=== PATIENT | female | born 1990 | race African-American/Black ===

== ENCOUNTER 2018-06-23 13:19 | Emergency (ER) | payer OTHER, SELFPAY ==
[2018-06-23 13:26] VITALS: BP 136/71; PULSE 68; RESP 18; TEMP 36.4; O2SAT 99
[2018-06-23] MEDS: IBUPROFEN SUSP 100 MG/5 ML UDC 400 MG PO (13:34)
--- NOTE | 2018-06-23 14:35 | PC.NURSE ---
pt recently had a tonsilectomy on June 17, had 24 oxycodone that I took which just took the edge off but those are gone and now she is here related to the pain, hurts to swallow and she feels like she is dehydrated.
[2018-06-23] MEDS: KETOROLAC 60 MG/2 ML VIAL 15 MG IV (15:30)
[2018-06-23] MEDS: SODIUM CHLORIDE 0.9% 1,000 ML 1000 ML IV (15:30)
[2018-06-23 15:35] LABS: Add Manual Diff / Slide Review NO; Basophils Absolute Auto 0 /uL (0-100); Basophils Percent Auto 0.5 % (0-2); Eosinophils Absolute Auto 200 /uL (0-450); Eosinophils Percent Auto 3.5 % (2-4); Hematocrit 39.5 % (36-46); Lymphocytes Absolute Auto 1500 /uL (1100-4500); Lymphocytes Percent Auto 24.1 % (25-40); Mean Corpuscular HGB Conc 32.8 % (30-36); Mean Corpuscular Volume 82.4 fL (80-100); Monocytes Absolute Auto 800 /uL (0-900); Monocytes Percent Auto 12.9 % (3-14); Neutrophils Absolute Auto 3800 /uL (1500-7000); Platelet Count 287 X10^3/uL (150-400); Red Cell Distribution Width 14.5 % (11.6-14.8); White Blood Cell Count 6.4 X10^3/uL (4.5-11.0)
[2018-06-23 15:48] LABS: BUN Creatinine Ratio 17.1 (6-22); Blood Urea Nitrogen 12 mg/dL (7-17); Calcium 8.3 mg/dL (8.4-10.2); Carbon Dioxide 26 mmol/L (22-32); Chloride 103 mmol/L (98-107); Estimated Glomerular Filt Rate > 60.0 mL/min (>60); Glucose 79 mg/dL (70-100); HEMOLYSIS < 15 (0-50); Potassium 3.8 mmol/L (3.4-5.1); Sodium 138 mmol/L (137-145)
[2018-06-23 16:16] VITALS: BP 115/66; PULSE 60; RESP 18; O2SAT 97
--- NOTE | 2018-06-24 07:18 | ED_ITS ---
HPI - Dental/Oral General Chief complaint: Dental/Oral Stated complaint: TONSILECTORY LAST WEEK PAIN Time Seen by Provider: 06/23/18 13:42 Source: patient Mode of arrival: ambulatory Limitations: no limitations History of Present Illness HPI Narrative: 28-year-old female nonsmoker, otherwise healthy presents with a chief complaint of severe throat pain. She had a tonsillectomy with our local ENT group on Saturday and ran out of her oxycodone. She contacted their office but nobody was available. She has pain with swallowing but no significant discharge, cough or shortness of breath. She is able to swallow although with significant pain Duration: constant Severity: moderate Relieving factors: prescription analgesics Exacerbating factors: chewing Associated symptoms: pain with swallowing Treatment prior to arrival: none Related Data Home Medications Medication Instructions Recorded Confirmed acetaminophen [Tylenol Extra 1,000 mg PO Q6H PRN 06/23/18 06/23/18 Strength] sertraline 50 mg PO BEDTIME 06/23/18 06/23/18 Previous Rx's Medication Instructions Recorded oxycodone 5 mg PO Q4-6H PRN #15 tab 06/23/18 Allergies Allergy/AdvReac Type Severity Reaction Status Date / Time No Known Drug Allergies Allergy Verified 06/23/18 13:29 Review of Systems Constitutional Denies chills, Denies fever(s), Denies lethargy and Denies weakness Eyes Denies change in vision, Denies eye discharge, Denies irritation and Denies loss of vision ENT Ears, Nose, Mouth, and Throat: Denies change in voice, Denies neck pain and Reports sore throat Cardiovascular Denies chest pain, Denies irregular heart rhythm, Denies lightheadedness, Denies palpitations, Denies dyspnea, Denies dyspnea on exertion and Denies orthopnea Respiratory Denies cough, Denies dyspnea, Denies dyspnea on exertion and Denies wheezing Gastrointestinal Gastrointestinal: Denies abdominal pain, Denies change in bowel habits, Denies diarrhea, Denies nausea and Denies vomiting Genitourinary Denies hematuria, Denies flank pain, Denies urinary incontinence and Denies urinary urgency Musculoskeletal Denies neck pain Integumentary/Breasts Denies pruritus, Denies erythema, Denies rash and Denies wounds Neurologic Denies confusion, Denies loss of vision and Denies weakness Psychiatric Denies anxiety, Denies confusion, Denies depression, Denies homicidal ideation and Denies suicidal ideation Endocrine Denies palpitations Hematologic/Lymphatic Denies easy bruising Allergic/Immunologic Denies wheezing PFSH Medical History Depression (Acute) Surgical History Hx of tonsillectomy (Acute) Social History Smoking Status: Never smoker Social History Smoking Status: Never smoker Exam Narrative Exam Narrative: GENERAL: 28-year-old female obviously uncomfortable HEAD: Atraumatic. Normocephalic. No temporal or scalp tenderness. EYES: Pupils equal round and reactive. Extraocular motions intact. No scleral icterus. No injection or drainage. ENT: dry mucous membranes.Nose without bleeding, purulent drainage or septal hematoma. Throat With mild erythema, no bleeding or significant swelling. Expected eschar on tonsillar bed bilaterally NECK: Trachea midline. No JVD or lymphadenopathy. Supple, nontender, no meningeal signs. CARDIOVASCULAR: Regular rate and rhythm without murmurs, gallops, or rubs. RESPIRATORY: Clear to auscultation. Breath sounds equal bilaterally. No wheezes, rales, or rhonchi. GASTROINTESTINAL: Abdomen soft, non-tender, nondistended. No hepato- splenomegaly, or palpable masses. No guarding. EXTREMITIES: No clubbing, cyanosis, or edema. No joint tenderness, effusion, or edema noted. BACK: Nontender without deformity or crepitance. No flank tenderness. NEURO: AOx3. SKIN: No rash or erythema. Initial Vital Signs Initial Vital Signs: Vital Signs Temperature 97.6 F 06/23/18 13:26 Pulse Rate 68 06/23/18 13:26 Respiratory Rate 18 06/23/18 13:26 Blood Pressure 136/71 06/23/18 13:26 Pulse Oximetry 99 06/23/18 13:26 Course Orders Ordered: Discontinued Medications Sodium Chloride (Normal Saline 0.9%) 1,000 mls @ 1,000 mls/hr IV BOLUS ONE Stop: 06/23/18 16:01 Last Infusion: 06/23/18 16:24 Dose: 0 mls/hr Admin: 06/23/18 15:30 Dose: 1,000 mls/hr Ibuprofen (Motrin Susp) 400 mg PO NOW ONE Stop: 06/23/18 13:34 Last Admin: 06/23/18 13:34 Dose: 400 mg Ketorolac Tromethamine (Toradol) 15 mg IV NOW ONE Stop: 06/23/18 15:12 Last Admin: 06/23/18 15:30 Dose: 15 mg Reevaluation(s) Reevaluation #1: patient feels much better after above-stated therapies Consultations Consultation #1: discussion with on-call otolaryngology whom requests we refill oxycodone 15 tablets. he suggests Toradol is an appropriate choice here in the emergency department and is on board with my decision to administer MDM - Dental/Oral Lab Data Result diagrams: 06/23/18 15:20 06/23/18 15:20 Lab Results 06/23/18 06/23/18 Range/Units 15:20 15:20 WBC 6.4 (4.5-11.0) X10^3/uL RBC 4.80 (4.0-5.2) X10^6/uL Hgb 13.0 (12.0-16.0) g/dL Hct 39.5 (36-46) % MCV 82.4 (80-100) fL MCH 27.0 (26-34) PG MCHC 32.8 (30-36) % RDW 14.5 (11.6-14.8) % Plt Count 287 (150-400) X10^3/uL Neut % (Auto) 59.0 (50-75) % Lymph % (Auto) 24.1 L (25-40) % Cannon % (Auto) 12.9 (3-14) % Eos % (Auto) 3.5 (2-4) % Baso % (Auto) 0.5 (0-2) % Neut # (Auto) 3800 (0110-2070) /uL Lymph # (Auto) 1500 (1823-2154) /uL Cannon # (Auto) 800 (0-900) /uL Eos # (Auto) 200 (0-450) /uL Baso # (Auto) 0 (0-100) /uL Sodium 138 (137-145) mmol/L Potassium 3.8 (3.4-5.1) mmol/L Chloride 103 (98-107) mmol/L Carbon Dioxide 26 (22-32) mmol/L BUN 12 (7-17) mg/dL Creatinine 0.70 (0.52-1.04) mg/dL Estimated GFR > 60.0 (>60) mL/min BUN/Creatinine Ratio 17.1 (6-22) Glucose 79 (70-100) mg/dL Calcium 8.3 L (8.4-10.2) mg/dL Discharge Plan Departure Patient Disposition: Home Clinical Impression: Pain in throat Discharge Date/Time: 06/23/18 16:17 Interventions: ED Discharge Assessment Last Done: 06/23/18 16:16 Instructions: DI for Tonsillectomy-Adult Activity Restrictions/Additional Instructions: *You have been diagnosed with [ post operative throat pain ] *What to do: *Take medications as directed *Follow up with your primary care provider in 2-3 days, call for an appointment. Let them know you were seen in the Emergency Department and that we ask that you be seen in follow up *Return to ER if you should have any new, worsening or concerning symptoms Prescriptions: New oxycodone 5 mg tablet 5 mg PO Q4-6H PRN (Reason: pain) Qty: 15 RF: 0 No Action acetaminophen [Tylenol Extra Strength] 500 mg Tablet 1,000 mg PO Q6H PRN (Reason: Pain (Scale Score 4-6)) RF: 0 sertraline 50 mg tablet 50 mg PO BEDTIME RF: 0
== END 2018-06-23 16:17 | disposition home or self-care (01) ==
PROVIDERS: Emergency Provider Emergency Medicine
DX: R07.0 Pain in throat (principal)
CPT/HCPCS: 36591; 80048; 85025; 96361; 96374; 99283; 99284; J1885

== ENCOUNTER 2019-04-21 12:33 | Emergency (ER) | payer OTHER, SELFPAY ==
[2019-04-21 12:43] VITALS: BP 138/50; PULSE 78; RESP 14; TEMP 36.6; O2SAT 98; BMI 30.7
--- NOTE | 2019-04-21 12:55 | ED_ITS ---
HPI - Recheck/Abnormal Lab/Rx <LATRELL Ng - Last Filed: 04/21/19 20:18> General Chief Complaint: Recheck/Abnormal Lab/Rx Stated Complaint: NEEDS Time Seen by Provider: 04/21/19 12:35 Source: patient Mode of arrival: Ambulatory Limitations: no limitations History of Present Illness HPI narrative: 29-year-old female presents to the emergency department for a test. She states her last menstrual period was 03/11/2019. Patient states she usually has 31 day cycles and she is very regular but is about a week late at this point. Patient reports increased breast tenderness, irritability, and bloating. 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 She denies any abdominal pain, vaginal bleeding, dizziness, chest pain, shortness of breath, other concerns. Related Data Home Medications Medication Instructions Recorded Confirmed acetaminophen [Tylenol Extra 1,000 mg PO Q6H PRN 06/23/18 06/23/18 Strength] sertraline 50 mg PO BEDTIME 06/23/18 06/23/18 Allergies Allergy/AdvReac Type Severity Reaction Status Date / Time No Known Drug Allergies Allergy Verified 04/21/19 12:43 Review of Systems <LATRELL Ng - Last Filed: 04/21/19 20:18> Review of Systems Narrative: REVIEW OF SYSTEMS: GENERAL: Denies fever or chills. HENT: No head trauma, hearing loss or sore throat. EYES: No loss of vision, double vision, eye pain, or irritation. CARDIOVASCULAR: No chest pain or syncope. RESPIRATORY: No shortness of breath or cough. GASTROINTESTINAL: No vomiting, diarrhea, or constipation. GENITOURINARY: No flank pain or dysuria. MUSCULOSKELETAL: No pain, weakness, or deformities. INTEGUMENTARY: No rash, lesions, or pruritus. NEURO: No numbness, tingling, memory loss, or confusion. PSYCH: No behavior or mood changes. Patient History <LATRELL Ng - Last Filed: 04/21/19 20:18> Medical History Depression (Acute) Surgical History Hx of tonsillectomy (Acute) Social History Smoking Status: Never smoker Smoking Status: Never smoker alcohol intake frequency: holidays/special occasions only Substance Use Type: does not use Exam <LATRELL Ng - Last Filed: 04/21/19 20:18> Initial Vital Signs Initial Vital Signs: Vital Signs Temperature 97.9 F 04/21/19 12:43 Pulse Rate 78 04/21/19 12:43 Respiratory Rate 14 04/21/19 12:43 Blood Pressure 138/50 L 04/21/19 12:43 Pulse Oximetry 98 04/21/19 12:43 PHYSICAL EXAMINATION: GENERAL: Well groomed, alert, and cooperative. Answers questions promptly and appropriately. Vital signs noted. HENT: Normocephalic, atraumatic. Ear canals patent. Oral mucosa is pink and moist. EYES: Conjunctiva pink, sclera white, no periorbital swelling. CHEST: Normal to inspection and without deformities. CARDIOVASCULAR: Regular rate. RESPIRATORY: Normal respiratory rate, trachea midline, airway patent. No stridor, nasal flaring or accessory muscle use. GASTROINTESTINAL: Bowel sounds normoactive. Abdomen is soft and non-tender. No organomegaly. MUSCULOSKELETAL: Normal gait and coordination. Equal tone and mass bilaterally. EXTREMITIES: CMS intact. Moves all extremities. SKIN: Warm, dry, soft, appropriate color for ethnicity. No lesions, rashes, or wounds. NEURO: Alert and Oriented X 3. Good coordination. No ataxia, or sensory deficits, or cognitive issues. PSYCH: Appropriate affect and mood. <Linda Tolliver DO - Last Filed: 04/24/19 07:33> Initial Vital Signs Initial Vital Signs: Vital Signs Temperature 97.9 F 04/21/19 12:43 Pulse Rate 78 04/21/19 12:43 Respiratory Rate 14 04/21/19 12:43 Blood Pressure 138/50 L 04/21/19 12:43 Pulse Oximetry 98 04/21/19 12:43 Course <LATRELL Ng - Last Filed: 04/21/19 20:18> Orders Ordered: ED Orders 04/21/19 13:07 Test Serum,Qual Stat Vital Signs Vital signs: Vital Signs - 8 hr 04/21/19 12:43 Temperature 97.9 F Pulse Rate 78 Respiratory Rate 14 Blood Pressure 138/50 L Pulse Oximetry 98 <Linda Tolliver DO - Last Filed: 04/24/19 07:33> Orders Ordered: ED Orders 04/21/19 13:07 Test Serum,Qual Stat Vital Signs Vital signs: Vital Signs - 8 hr 04/21/19 12:43 Temperature 97.9 F Pulse Rate 78 Respiratory Rate 14 Blood Pressure 138/50 L Pulse Oximetry 98 MDM - Recheck/Abnormal Lab/Rx <Thelma LATRELL Wang - Last Filed: 04/21/19 20:18> Medical Records Attestation: I reviewed the patient's medical records. Lab Data Attestation: I reviewed the patient's lab results. Labs: Lab Results 04/21/19 Range/Units 13:07 Serum , Qual Negative (Negative) [facility] Narrative Medical decision making narrative: 29-year-old healthy female presents to the emergency department for delayed menstruation cycle and possible . Patient has no symptoms and is hemodynamically stable. Negative urine and HCG tests. Patient was counseled about prevention. She was encouraged to follow up with her primary care provider in 1-2 weeks if she is still experiencing amenorrhea. Patient agreed with plan of care verbalized unders tanding <Linda Tolliver DO - Last Filed: 04/24/19 07:33> Lab Data Labs: Lab Results 04/21/19 Range/Units 13:07 Serum , Qual Negative (Negative) Discharge Plan Departure Patient Disposition: Home Clinical Impression: Encounter for test, result negative Discharge Date/Time: 04/21/19 14:10 Instructions: In-Home Tests: Your Questions Answered, Home and Clinic Tests Activity Restrictions/Additional Instructions: Thank you for entrusting me with your care today. As discussed, your urine and blood tests are negative for . Please follow up with your primary care provider the next few weeks for further evaluation if you continue to have symptoms or concerns about a missed menstrual cycle. Return emergency depar tment for severe symptoms such as severe abdominal pain, uncontrollable vomiting, high fevers, dizziness, syncope, seizures, or other concerns. Prescriptions: No Action acetaminophen [Tylenol Extra Strength] 500 mg Tablet 1,000 mg PO Q6H PRN (Reason: Pain (Scale Score 4-6)) RF: 0 sertraline 50 mg tablet 50 mg PO BEDTIME RF: 0
[2019-04-21 13:44] LABS: Pregnancy Test Serum,Qual Negative (Negative)
== END 2019-04-21 14:10 | disposition home or self-care (01) ==
PROVIDERS: Emergency Provider Nurse Practitioner
DX: Z32.02 Encounter for pregnancy test, result negative (principal)
CPT/HCPCS: 36415; 84703; 99283

== ENCOUNTER 2020-04-06 01:35 | Emergency (ER) | payer OTHER, SELFPAY ==
[2020-04-06 01:44] VITALS: BP 142/80; PULSE 88; RESP 15; TEMP 37.2; O2SAT 100; BMI 29.9
--- NOTE | 2020-04-06 01:44 | ED_ITS ---
HPI - General Adult General Chief complaint: Extremity Problem,Nontraumatic Stated complaint: leg pain x 3 days numbness Time Seen by Provider: 04/06/20 01:42 Source: patient Mode of arrival: Ambulatory Limitations: no limitations History of Present Illness HPI narrative: Patient is a 30-year-old otherwise healthy female here for evaluation of pain in her left calf and also tingling in her left leg. Patient states the symptoms been going on for the past couple days. Approximately 7-10 days ago she was diagnosed with COVID-19. She states that her symptoms were ?fairly mild ?however she is still having somewhat of a slight cough. She called the nurse advice line who told her to come to the emergency department to get evaluated for blood clot. Related Data Home Medications Medication Instructions Recorded Confirmed acetaminophen [Tylenol Extra 1,000 mg PO Q6H PRN 06/23/18 06/23/18 Strength] sertraline 50 mg PO BEDTIME 06/23/18 06/23/18 Allergies Allergy/AdvReac Type Severity Reaction Status Date / Time No Known Drug Allergies Allergy Verified 04/21/19 12:43 Review of Systems Constitutional Constitutional: Denies fever(s) and Denies headache(s) ENT Ears, Nose, Mouth, and Throat: Denies headache(s) Cardiovascular Cardiovascular: Denies chest pain Respiratory Respiratory: Reports cough Musculoskeletal Comments: Left calf pain Integumentary/Breasts Skin/Breast: Denies lesions and Denies rash Neurologic Neurologic: Denies headache(s) Comments: Tingling left lower extremity Hematologic/Lymphatic Hematologic/Lymphatic: Denies easy bruising Allergic/Immunologic Allergic/Immunologic: Denies urticaria Patient History Medical History (Updated 04/06/20 @ 03:44 by Gilberto Funes DO) Depression Surgical History Hx of tonsillectomy Social History Smoking Status: Never smoker Smoking Status: Never smoker alcohol intake frequency: holidays/special occasions only Substance Use Type: does not use Exam Initial Vital Signs Initial Vital Signs: Vital Signs Temperature 99 F 04/06/20 01:44 Pulse Rate 88 04/06/20 01:44 Respiratory Rate 15 04/06/20 01:44 Blood Pressure 142/80 H 04/06/20 01:44 Pulse Oximetry 100 04/06/20 01:44 Const General: cooperative and comfortable Limitations: mental status not altered Resp Effort & Inspection: normal respiratory effort Cardio Pulses: dorsalis pedis present on the left Skin Lesions: no lesions Rashes: no rashes Neuro General: patient alert, patient awake and patient oriented x3 Cognition: normal cognition Speech: speech normal Extrem Other: Tenderness to palpation posterior left calf. No swelling. No edema. Left knee unremarkable. Left ankle unremarkable. Left thigh unremarkable. Psych Appearance: grossly normal and well kempt Course Orders Ordered: ED Orders 04/06/20 02:00 Basic Metabolic Panel Stat Complete Blood Count AUTO DIFF Stat D Dimer Stat 04/06/20 02:17 perip venous low extrem lt Stat Vital Signs Vital signs: Vital Signs - 8 hr 04/06/20 01:44 Temperature 99 F Pulse Rate 88 Respiratory Rate 15 Blood Pressure 142/80 H Pulse Oximetry 100 Medical Decision Making Lab Data Lab results reviewed: Yes I reviewed the patient's lab results. Result diagrams: 04/06/20 02:00 04/06/20 02:00 Labs: Lab Results 04/06/20 04/06/20 04/06/20 Range/Units 02:00 02:00 02:00 WBC 7.1 (4.5-11.0) X10^3/uL RBC 4.56 (4.0-5.2) X10^6/uL Hgb 12.6 (12.0-16.0) g/dL Hct 37.2 (36-46) % MCV 81.6 (80-100) fL MCH 27.6 (26-34) PG MCHC 33.8 (30-36) % RDW 12.9 (11.6-14.8) % Plt Count 252 (150-400) X10^3/uL Neut % (Auto) 42.4 L (50-75) % Lymph % (Auto) 44.0 H (25-40) % Wharton % (Auto) 10.4 (3-14) % Eos % (Auto) 2.8 (2-4) % Baso % (Auto) 0.4 (0-2) % Neut # (Auto) 3000 (3574-4761) /uL Lymph # (Auto) 3100 (0960-9033) /uL Wharton # (Auto) 700 (0-900) /uL Eos # (Auto) 200 (0-450) /uL Baso # (Auto) 0 (0-100) /uL D-Dimer 747 H (<230) ng/mL Sodium 138 (137-145) mmol/L Potassium 3.7 (3.4-5.1) mmol/L Chloride 104 (98-107) mmol/L Carbon Dioxide 28 (22-32) mmol/L BUN 19 H (7-17) mg/dL Creatinine 0.75 (0.52-1.04) mg/dL Estimated GFR > 60.0 (>60) mL/min BUN/Creatinine Ratio 25.3 H (6-22) Glucose 115 H (70-100) mg/dL Calcium 8.4 (8.4-10.2) mg/dL Imaging Data US - DVT: Radiologist's Impression: Negative for left lower extremity DVT MDM Narrative Medical decision making narrative: Patient is neurovascularly intact. Her D- dimer was elevated however she was recently diagnosed with COVID-19. She is not having any shortness of breath or chest pain today. No indication for admission to the hospital secondary to this diagnosis. She does have pain in her left calf. Given the elevated D-dimer ultrasound was ordered. Subsequently shows no DVT. Unsure the exact etiology of the tingling however does not appear to be an emergent issue. No further workup needed other emergency department. We did discuss return precautions and follow-up instructions. She expressed understand ing and agreement. Discharge Plan Departure Patient Disposition: Home Clinical Impression: Pain of left calf, Distal paresthesia Instructions: DI for Numbness/Tingling Activity Restrictions/Additional Instructions: Your workup today was negative for any blood clot. There is no signs of any inf ections. If your symptoms worsen he develop any new symptoms with regard to your left leg please return to the emergency department. With regard to the your diagnosis of coronavirus. Current CDC recommendations states that you should quarantine yourself for at least 10 days after your diagnosis and after you have been symptom-free for 24 hours. Make sure that you contact your medical department for follow-up. Return to the emergency department for any new or worsening symptoms Prescriptions: No Action acetaminophen [Tylenol Extra Strength] 500 mg Tablet 1,000 mg PO Q6H PRN (Reason: Pain (Scale Score 4-6)) RF: 0 sertraline 50 mg tablet 50 mg PO BEDTIME RF: 0
[2020-04-06 02:06] LABS: Add Manual Diff / Slide Review NO; Basophils Absolute Auto 0 /uL (0-100); Basophils Percent Auto 0.4 % (0-2); Eosinophils Absolute Auto 200 /uL (0-450); Eosinophils Percent Auto 2.8 % (2-4); Hematocrit 37.2 % (36-46); Hemoglobin 12.6 g/dL (12.0-16.0); Lymphocytes Absolute Auto 3100 /uL (1100-4500); Mean Corpuscular HGB Conc 33.8 % (30-36); Mean Corpuscular Hemoglobin 27.6 PG (26-34); Mean Corpuscular Volume 81.6 fL (80-100); Monocytes Absolute Auto 700 /uL (0-900); Monocytes Percent Auto 10.4 % (3-14); Neutrophils Absolute Auto 3000 /uL (1500-7000); Neutrophils Percent Auto 42.4 % (50-75); Platelet Count 252 X10^3/uL (150-400); Red Blood Cell Count 4.56 X10^6/uL (4.0-5.2); Red Cell Distribution Width 12.9 % (11.6-14.8); White Blood Cell Count 7.1 X10^3/uL (4.5-11.0)
[2020-04-06 02:15] LABS: BUN Creatinine Ratio 25.3 (6-22); Blood Urea Nitrogen 19 mg/dL (7-17); Calcium 8.4 mg/dL (8.4-10.2); Carbon Dioxide 28 mmol/L (22-32); Chloride 104 mmol/L (98-107); D Dimer 747 ng/mL (<230); Estimated Glomerular Filt Rate > 60.0 mL/min (>60); Glucose 115 mg/dL (70-100); HEMOLYSIS < 15 (0-50); Potassium 3.7 mmol/L (3.4-5.1); Sodium 138 mmol/L (137-145)
--- NOTE | 2020-04-06 02:17 | DI.US.S_ITS ---
PROCEDURE: US PERIPH VENOUS LOW EXTREM LT INDICATIONS: PAIN TECHNIQUE: Real-time imaging, as well as color and pulse Doppler interrogation, were performed of the lower extremity deep veins from the inguinal ligament to the popliteal fossa. COMPARISON: None. FINDINGS: The common femoral, femoral and popliteal veins are normally compressible, and free of intraluminal thrombus. Color and pulse Doppler demonstrate normal phasic intraluminal flow. There is normal augmentation response to distal compression maneuver. IMPRESSION: No sonographic evidence of deep venous thrombosis in the left lower extremity. Dictated by: Geovani Cunningham M.D. on 04/06/2020 at 8:17 Approved by: Geovani Cunningham M.D. on 04/06/2020 at 8:17
[2020-04-06 03:55] VITALS: BP 138/78; PULSE 85; RESP 16; O2SAT 97
== END 2020-04-06 03:56 | disposition home or self-care (01) ==
PROVIDERS: Emergency Provider Emergency Medicine
DX: M79.605 Pain in left leg (principal); R20.2 Paresthesia of skin; U07.1 COVID-19; R05 Cough
CPT/HCPCS: 36415; 80048; 85025; 85379; 93971; 99283; 99284

== ENCOUNTER → 2020-11-17 15:51 | Outpatient (CLI) | payer OTHER, SELFPAY ==
--- NOTE | 2020-11-17 15:53 | DI.US.S_ITS ---
PROCEDURE: US OB >= 14 WEEKS FETUS INDICATIONS: 20 WEEK ANATOMICAL SURVEY. OUTSIDE/PRIOR DATING DATA: Last menstrual period (LMP): 07/08/2020. LMP-based estimated date of delivery (PADMAJA): 04/14/2021 . First dating scan (date and location): 11/17/2020 . Estimated date of delivery (PADMAJA) from first dating scan: 04/13/2021 . TECHNIQUE: Real-time scanning was performed of the fetus, with image documentation and biometric measurements. Endovaginal scanning: No COMPARISON: None. FINDINGS: General: A single living intrauterine gestation is present. Presentation: Variable. Placenta: Placental position is posterior , and low-lying with the inferior margin of the placenta 1.4 cm from the internal cervical os. Amniotic fluid index: 14.0 cm, normal range is 5-24 cm. heart rate: 153 beats per minute. Maternal cervical canal: 3.7 cm long. Normal lower limit is 2.5 cm. biometrics: Biparietal diameter: 19 weeks Head circumference: 18 weeks 5 days Abdominal circumference: 19 weeks 4 days Femur length: 18 weeks 6 days Estimated gestational age from initial scan: not applicable. Composite gestational age from present scan: 19 weeks Estimated weight and percentile: 280 g; 67th percentile Measurement variability for biometric dating: +/- 7 days from 14 weeks to 15 weeks 6 days gestation, +/- 10 days from 16 weeks to 21 weeks 6 days gestation, +/- 2 weeks from 22 weeks to 27 weeks 6 days gestation, +/- 3 weeks for 28 weeks gestation or later. weight reference: 4500 g or EFW >90/95% is considered macrosomia or large for gestational age. EFW <10% is small for gestational age. EFW 5% or less is considered intra-uterine growth restriction. Anatomic survey: Neuro: Ventricles are non-dilated at less than 10 mm. Cisterna magna is normal at 3-11 mm. Cerebellum is normal in size and morphology. Nuchal skin fold: Normal at less than 6 mm between 14-21 weeks gestational age. Face: Nose and lips, facial profile are normal. Spine: No evidence for spina bifida. Heart: 4-chambered heart is present, with normal ventricular outflow tracts. Diaphragm: Diaphragm is intact. Stomach: Left-sided stomach is present. Kidneys: No hydronephrosis. Normal is less than 5 mm in 2nd trimester, less than 7 mm in 3rd trimester. Cord: 3-vessel cord has orthotopic insertion. Bladder: Normal in size. Extremities: All 4 extremities identified. IMPRESSION: 1. 19 week 0 day single living IUP corresponding to ultrasound PADMAJA of 04/13/2021. 2. Cord insertion site not well visualize; otherwise normal anatomy. Follow-up recommended. 3. Low-lying placenta which can be reassessed on follow-up examination. Dictated by: Cedrick Adamson [facility] Interpreted: Geovani Cunningham MD on 11/18/2020 at 9:57 Transcribed by: ROSSI on 11/18/2020 at 10:02 Approved by: Geovani Cunningham M.D. on 11/18/2020 at 12:06
== END ==
PROVIDERS: Referring Provider Midwife; Visit Provider Midwife
DX: Z36.89 Encounter for other specified antenatal screening (principal); Z3A.19 19 weeks gestation of pregnancy
CPT/HCPCS: 76811

== ENCOUNTER 2021-01-10 20:23 | Observation (INO) | payer OTHER, MEDICAID, SELFPAY ==
--- NOTE | 2021-01-10 20:44 | P.TNLD_ITS ---
Visit Information Visit Information Date of evaluation: 01/10/21 On-call OB Provider: Vera Sierra Reason for Evaluation: Yes pre-term labor and Yes rule out labor Comments/Additional reasons for admission: 30yo at 26w4d who presented with regular cramping. The pt reports developing diarrhea and nausea/vomiting yesterday. She has had three episodes of diarrhea today. She feels her nausea is starting to improve now. She reports the cramping is overall mild, and seems to be improving already. She denies any vaginal bleeding or LOF. She is feeling her baby move regularly. [facility] Medical History (Updated 01/11/21 @ 07:43 by Vera Sierra MD) Depression Surgical History Hx of tonsillectomy Social History Smoking Status: Never smoker Evaluation Evaluation Baseline heart rate: 150 Variability: Moderate (11-25) monitor accelerations: Present Monitor Decelerations: Absent Diagnosis, Plan/Disposition Final Diagnosis (1) Cramping affecting , antepartum: Status: Acute Plan/Disposition Plan: 30yo at 26w4d here due to cramping. No significant contractions on monitoring. Cramping resolved after 1L bolus. U/A and COVID testing negative. Encouraged continued hydration at home. Offered Zofran - declined. If diarrhea persists, will need outpatient work-up. Safe for d/c home. OB Disposition: home
[2021-01-10] MEDS: LACTATED RINGERS 1,000 ML 1000 ML IV (21:15)
[2021-01-10 22:28] LABS: Appearance Urine UA CLEAR; Bilirubin Urine UA NEGATIVE (NEGATIVE); Color Urine UA YELLOW; Glucose Urine UA NEGATIVE (Negative); Ketones Urine UA NEGATIVE (NEGATIVE); Leukocyte Esterase Urine UA NEGATIVE (NEGATIVE); Nitrite Urine UA NEGATIVE (Negative); Occult Blood Urine UA NEGATIVE (Negative); Protein Urine UA NEGATIVE (Negative); Specific Gravity Urine UA <=1.005 (1.000-1.035); Urobilinogen Urine UA 0.2 E.U./dL (0.2)
[2021-01-10 22:32] LABS: pH Urine UA 6.5 (4.5-8.0)
[2021-01-10 22:32] LABS: COVID19 - ADMIT (NP swab/PCR) Negative (Negative)
[2021-01-10 22:34] LABS: Bacteria Urine Few (2-10); Squamous Epithelial Cell Urine 1-5 /HPF (0-5/HPF); WBC Urine None Seen (0-5/HPF)
[2021-01-10 22:35] LABS: Culture Indicated Urine Cult Not Indicated; RBC Urine 0-1/HPF (0-5/HPF)
== END 2021-01-10 23:30 | disposition home or self-care (01) ==
LOC: LABOR 20:30
PROVIDERS: Admitting Provider Family Medicine; Referring Provider Registered Nurse; Visit Provider Family Medicine
DX: O21.9 Vomiting of pregnancy, unspecified (principal); O26.892 Other specified pregnancy related conditions, second trimester; R10.9 Unspecified abdominal pain; R19.7 Diarrhea, unspecified; Z3A.26 26 weeks gestation of pregnancy
CPT/HCPCS: 59025; 81001; 87635; 96360; C9803; G0378; G0379

== ENCOUNTER → 2021-01-19 16:04 | Outpatient (CLI) | payer OTHER, MEDICAID, SELFPAY ==
--- NOTE | 2021-01-19 | DI.US.S_ITS ---
PROCEDURE: US OB LIMITED INDICATIONS: partial placenta previa NOS or w/o hemorrhage OUTSIDE/PRIOR DATING DATA: Last menstrual period (LMP): July 08, 2020 . LMP-based estimated date of delivery (PADMAJA): April 14, 2021 . First dating scan (date and location): [facility]; November 17, 2020 . Estimated date of delivery (PADMAJA) from first dating scan: April 13, 2021 . TECHNIQUE: Real-time scanning was performed of the fetus, with image documentation. COMPARISON: None. FINDINGS: A single living intrauterine gestation is present. Presentation: Cephalic. Placenta: Placental position is posterior , without previa. Amniotic fluid index: 18.3 cm, normal range is 5-24 cm. heart rate: 158 beats per minute. Maternal cervical canal: 3.5 cm long. Normal lower limit is 2.5 cm. IMPRESSION: Live single intrauterine gestation as detailed above. Dictated by: Cristhian Storey M.D. on 01/19/2021 at 17:03 Approved by: Cristhian Storey M.D. on 01/19/2021 at 17:05
== END ==
PROVIDERS: Referring Provider Registered Nurse; Visit Provider Registered Nurse
DX: O44.20 Partial placenta previa NOS or without hemorrhage, unspecified trimester (principal)
CPT/HCPCS: 76815; 76817